=== PATIENT | male | born 1995 | race Caucasian/White ===

== ENCOUNTER 2018-04-27 06:06 | Day surgery (SDC) | payer OTHER ==
[2018-04-26 15:07] VITALS: BMI 25.8
[2018-04-27] MEDS ORDERED: Fentanyl 100 MCG/2 ML VIAL ONE (06:16)
[2018-04-27] MEDS ORDERED: Midazolam HCl 2 mg/2 ml Vial ONE (06:16)
[2018-04-27] MEDS ORDERED: Bupivacaine HCl 0.5%/Epinephrine 1:200,000/PF 30 ml Vial ONE (07:03)
[2018-04-27] MEDS ORDERED: CEFAZOLIN 2 GM/50 ML BAG ONE (07:06)
--- NOTE | 2018-04-27 10:56 | OP ---
DATE OF PROCEDURE: 04/27/2018 PREOPERATIVE DIAGNOSIS: Left elbow distal biceps tendon rupture. POSTOPERATIVE DIAGNOSIS: Left elbow distal biceps tendon rupture. PROCEDURE: Open repair of left distal biceps tendon. ANESTHESIA: General with interscalene block. SURGEON: Dr. Je Hendrickson. MOLD FORMS BUILDER: MIK Carpenter. ESTIMATED BLOOD LOSS: Minimal. TOURNIQUET TIME: 86 minutes. DRAINS: None. COMPLICATIONS: None. PROCEDURE IN DETAIL: Following induction of general anesthesia, the patient was placed supine on the operating room table. Pneumatic tourniquet applied to proximal left arm. Left arm was then prepped and draped in sterile fashion for surgery. After exsanguination of the arm tourniquet inflated to 2 50 mmHg. A 4 cm incision made obliquely over the proximal left forearm musculature in the antecubita l fossa, subcutaneous tissue by careful blunt dissection. The lateral antebrachial cutaneous nerve w as identified and carefully protected throughout the course of the procedure. 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 It was markedly retracted and fibrosed. The biceps tendon was carefully dissected and released from the lacertus fibrosis mobilizing the dis nkechi biceps. The distal biceps stump was followed down to its attachment site on the biceps tuberosit y of the radius. Careful blunt dissection was performed and a blunt Hohmann was placed around the ra dius, exposing the biceps tuberosity. After exposure of the biceps tuberosity a guidepin was placed across the biceps tuberosity at the posterior aspect of the radius, an 8.0 mm reamer was used to crea te a unicortical tunnel in the biceps. The elbow was cleared of soft tissue and bony debris. The bi ceps tendon was then carefully mobilized due to the retraction of the tendon it was unable to advance to the biceps tuberosity. Due to the thickness of the tendon a Z-lengthening of the distal biceps t endon was performed using a 15 blade. After lengthening biceps tendon, it was sutured using a #2 Fib erWire suture and a #2 FiberLoop suture completing the biceps tendon preparation and lengthening the tendon, allowing for extension into the biceps tuberosity. The wounds were copiously irrigated. The two suture limbs from the tendon were then placed through the eye of an Arthrex distal biceps anchor . The anchor was inserted through the drill tunnel in the radius and flipped on the posterior aspect . The sutures were tensioned and hamilton in the biceps tendon into the tunnel with excellent anatomic placement. The sutures were then passed through the biceps tendon and sewn together securing the rep air. Excellent fixation and stabilization of the biceps tendon was obtained. The wound was copiousl y irrigated, it was closed using 2-0 Vicryl. Steri-Strips applied to skin. A large compressive ster ile dressing was applied to the elbow. The patient tolerated procedure well and was taken to recover y room in stable condition.
== END 2018-04-27 10:38 | disposition home or self-care (01) ==
LOC: SDC 06:06
PROVIDERS: ATTEND Orthopaedic Surgery Sports Medicine
PROC: 0LQ40ZZ Repair Left Upper Arm Tendon, Open Approach (ICD-10-PCS; principal; 2018-04-27)
DX: S46.212A Strain of muscle, fascia and tendon of other parts of biceps, left arm, initial encounter (principal); Z79.899 Other long term (current) drug therapy; Z88.2 Allergy status to sulfonamides; X50.0XXA Overexertion from strenuous movement or load, initial encounter
CPT/HCPCS: C1713; J0670; J2250; J3010